=== PATIENT | male | born 1970 ===

== ENCOUNTER 2021-08-30 20:09 | Emergency (ER) | payer OTHER ==
[2021-08-31] MEDS ORDERED: FLUORESCEIN 1 MG STRIP OP ONE (01:04)
[2021-08-31] MEDS ORDERED: diphenhydrAMINE 25 MG CAP PO ONE (01:04)
[2021-08-31] MEDS ORDERED: TETRACAINE 0.5% OPHTH SOLN 4ML OU ONE (01:05)
[2021-08-31] MEDS ORDERED: IBUPROFEN 800 MG TAB PO ONE (01:05)
--- NOTE | 2021-08-31 01:48 | Emergency Department Report ---
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 There is no decreased vision. However patient does complain of burning itching to left eye. Vision is 20/30 bilaterally. There is no drainage no bleeding no obvious foreign body. Symptoms are exacerbated by rubbing and opening. Symptoms relieved by closing. Severity scale (0 -10): 8 - Related Data Previous Rx's Medication Instructions Recorded Last Taken Type Ketotifen Fumarate [Zaditor] 2 drop OP BID PRN #5 ml 08/31/21 Unknown Rx Polymyxin B Sulf/Trimethoprim 2 drops OP Q3H 7 Days #10 ml 08/31/21 Unknown Rx [Polytrim Eye Drops] Allergies Allergy/AdvReac Type Severity Reaction Status Date / Time No Known Allergies Allergy Verified 08/31/21 01:24 ED Review of Systems ROS: Stated complaint: SOMETHING IN LEFT EYE Other details as noted in HPI Constitutional: denies: chills, fever Eyes: eye pain (Burning itching) ENT: denies: ear pain, throat pain Respiratory: denies: cough, shortness of breath, wheezing Cardiovascular: denies: chest pain, palpitations Endocrine: no symptoms reported Gastrointestinal: denies: abdominal pain, nausea, diarrhea Genitourinary: denies: urgency, dysuria Musculoskeletal: denies: back pain, joint swelling, arthralgia Skin: denies: rash, lesions Neurological: denies: headache, weakness, paresthesias Psychiatric: denies: anxiety, depression Hematological/Lymphatic: denies: easy bleeding, easy bruising ED Past Medical Hx - Medications Home Medications: Home Medications Medication Instructions Recorded Confirmed Last Taken Type Ketotifen Fumarate [Zaditor] 2 drop OP BID PRN #5 ml 08/31/21 Unknown Rx Polymyxin B Sulf/Trimethoprim 2 drops OP Q3H 7 Days #10 ml 08/31/21 Unknown Rx [Polytrim Eye Drops] ED Physical Exam - General Limitations: No Limitations General appearance: alert, in no apparent distress - Head Head exam: Present: normocephalic - Eye Eye exam: Present: PERRL, EOMI, conjunctival injection. Absent: nystagmus, periorbital swelling, periorbital tenderness Pupils: Present: normal accommodation - Expanded Eye Exam Expanded Eyelids: Erythema: Left Pupils: Regular, Round: Bilateral, Reactive: Bilateral Sclera/Conjunctival: Normal Inspection: Right, Injection: Left Anterior chamber: Normal Inspection: Bilateral Posterior chamber: Deferred: Bilateral Visual acuity (R) = 20/: 30 Visual acuity (L) = 20/: 30 With correction: No - ENT ENT exam: Present: mucous membranes moist - Neck Neck exam: Present: normal inspection, full ROM. Absent: tenderness - Respiratory Respiratory exam: Present: normal lung sounds bilaterally. Absent: respiratory distress, wheezes - Cardiovascular Cardiovascular Exam: Present: regular rate, normal rhythm, normal heart sounds. Absent: systolic murmur, diastolic murmur, rubs, gallop - GI/Abdominal GI/Abdominal exam: Present: soft, normal bowel sounds - Rectal Rectal exam: Present: deferred - Extremities Exam Extremities exam: Present: normal inspection, full ROM - Back Exam Back exam: Present: normal inspection, full ROM. Absent: tenderness - Neurological Exam Neurological exam: Present: alert, oriented X3, CN II-XII intact - Expanded Neurological Exam Expanded Patient oriented to: Present: person, place, time Best Eye Response ([place]): (4) open spontaneously Best Motor Response ([place]): (6) obeys commands Best Verbal Response ([place]): (5) oriented [place] Total: 15 - Psychiatric Psychiatric exam: Present: normal affect, normal mood - Skin Skin exam: Present: warm, dry, intact, normal color. Absent: rash ED Course Vital Signs 08/30/21 20:31 Temperature 98.3 F Pulse Rate 85 Respiratory 18 Rate Blood Pressure 187/98 O2 Sat by Pulse 98 Oximetry - Procedure Description Procedures done: Left eye Khan lamp exam, anesthesia with tetracaine 2 drops anesthesia is achieved. Fluorescein staining. Khan lamp exam noted corneal abrasion small at 2:00. Eyelid inverted swelling I irrigated with 10 cc sterile saline. Patient is PERRLA , EOMI, jumped is injected. Patient given post care instructions. Patient verbalized understanding of same including follow-up with ophthalmology in tomorrow. Patient tolerated procedure with minimal distress ED Medical Decision Making - Medical Decision Making This is a small corneal abrasion left eye. Plan DC with prescriptions, follow- up with ophthalmology. Return to emergency department should symptoms worsen. Patient verbalized agreement and understanding with discharge plan. Patient DC'd home in stable condition at this time. Critical care attestation.: If time is entered above; I have spent that time in minutes in the direct care of this critically ill patient, excluding procedure time. ED Disposition Clinical Impression: Injury of conjunctiva and corneal abrasion of left eye w/o FB Qualifiers: Encounter type: initial encounter Qualified Code(s): S05.02XA - Injury of conjunctiva and corneal abrasion without foreign body, left eye, initial encounter Disposition: HOME / SELF CARE / HOMELESS Is pt being admited?: No Does the pt Need Aspirin: No Condition: Stable Instructions: Corneal Abrasion, [id number] Additional Instructions: Take medications as prescribed, follow-up with eye doctor as directed. Return to emergency department if symptoms worsen Prescriptions: Polymyxin B Sulf/Trimethoprim [Polytrim Eye Drops] 2 drops OP Q3H 7 Days #10 ml Ketotifen Fumarate [Zaditor] 2 drop OP BID PRN #5 ml PRN Reason: itching burning Referrals: ALFRED [facility] MD [Staff Physician] - 3-5 Days Forms: Work/School Release Form(ED) Time of Disposition: 01:53
[2021-08-31 02:11] VITALS: BP 183/97
== END 2021-08-31 02:20 | disposition home or self-care (01) ==
LOC: ED 20:09
DX: S05.02XA Injury of conjunctiva and corneal abrasion without foreign body, left eye, initial encounter (principal); X58.XXXA Exposure to other specified factors, initial encounter; Y93.89 Activity, other specified; Y92.89 Other specified places as the place of occurrence of the external cause; Y99.0 Civilian activity done for income or pay
CPT/HCPCS: 99283; 99284